=== PATIENT | female | born 1995 | race Hispanic/Latino ===

== ENCOUNTER 2022-02-13 08:29 | Emergency (ER) | payer MEDICAID ==
[~2022-02-13] VITALS: Ht 154.9 cm; Wt 72.6 kg
[~2022-02-13 08:29] MED LIST: PREN-154 PO
[2022-02-13 08:39] VITALS: BP 117/71
== END 2022-02-13 09:16 | disposition home or self-care (01) ==
LOC: EDH 08:29
DX: B09 Unspecified viral infection characterized by skin and mucous membrane lesions (principal); Z98.890 Other specified postprocedural states; Z79.899 Other long term (current) drug therapy

== ENCOUNTER 2022-03-24 15:47 | Emergency (ER) | payer MEDICAID ==
[~2022-03-24] VITALS: Ht 154.9 cm; Wt 73.9 kg
[2022-03-24 15:59] VITALS: BP 112/75
== END 2022-03-24 16:43 | disposition home or self-care (01) ==
LOC: EDH 15:47
DX: J02.8 Acute pharyngitis due to other specified organisms (principal); Z20.822 Contact with and (suspected) exposure to COVID-19; E66.9 Obesity, unspecified; Z68.30 Body mass index [BMI] 30.0-30.9, adult; Z98.890 Other specified postprocedural states
CPT/HCPCS: 99283; 87635; 87880; 87804 ×2; C9803

== ENCOUNTER 2022-03-31 09:56 | Emergency (ER) | payer MEDICAID ==
[~2022-03-31] VITALS: Ht 154.9 cm; Wt 74.8 kg
[2022-03-31] MEDS ORDERED: FLUT16H NASAL (14:04)
[2022-03-31] MEDS ORDERED: AMOX500C2 PO (14:04)
[2022-03-31] MEDS ORDERED: PRED20TA3 PO (14:04)
[2022-03-31] MEDS ORDERED: BENZ-39 PO (14:04)
[2022-03-31 14:10] VITALS: BP 118/70
== END 2022-03-31 14:12 | disposition home or self-care (01) ==
LOC: EDH 09:56
DX: J40 Bronchitis, not specified as acute or chronic (principal); J32.8 Other chronic sinusitis; Z20.822 Contact with and (suspected) exposure to COVID-19; E66.9 Obesity, unspecified; Z68.31 Body mass index [BMI] 31.0-31.9, adult
CPT/HCPCS: 99284; 71045; 87635; 87804 ×2; 81025; C9803

== ENCOUNTER 2022-07-05 08:24 | Emergency (ER) | payer MEDICAID ==
[~2022-07-05] VITALS: Ht 154.9 cm; Wt 73.9 kg
[~2022-07-05 08:24] MED LIST changes: +AMOX500C2 PO; +BENZ-39 PO; +FLUT16H NASAL; +PRED20TA3 PO
[2022-07-05 09:02] LABS: BASOPHILS % (AUTO) 0.3 % (0.0-5.0); EOSINOPHILS % (AUTO) 2.5 % (0.0-8.0); LYMPHOCYTES % (AUTO) 28.8 % (21.0-51.0); MEAN CORPUSCULAR HEMOGLOBIN 29.2 pg (27.0-33.0); MEAN CORPUSCULAR HGB CONC 33.1 g/dL (32.0-36.0); MEAN CORPUSCULAR VOLUME 88.2 fL (79-99); MONOCYTES % (AUTO) 4.2 % (3.0-13.0); PLATELET COUNT (AUTO) 281 K/uL (130-400); RED BLOOD CELL COUNT(AUTO) 4.08 MIL/uL (4.00-5.50); RED CELL DISTRIBUTION WIDTH 13.2 % (11.0-15.5)
[2022-07-05 09:22] LABS: CREATININE 0.8 mg/dL (0.5-1.5); POTASSIUM 3.3 mmol/L (3.5-5.1)
[2022-07-05 09:26] LABS: ALBUMIN 3.7 g/dL (3.5-5.0); TOTAL PROTEIN, SERUM 7.5 g/dL (6.0-8.3)
[2022-07-05 09:29] LABS: HCG,QUALITATIVE URINE NEGATIVE (NEGATIVE)
[2022-07-05 09:53] LABS: APPEARANCE,URINE TURBID (CLEAR); BILIRUBIN,URINE NEGATIVE (NEGATIVE); COLOR,URINE RED (YELLOW); GLUCOSE, URINE (UA) NEGATIVE (NEGATIVE); KETONES,URINE 5 mg/dL (NEGATIVE); LEUKOCYTE ESTERASE ,URINE SMALL Leu/uL (NEGATIVE); NITRATE,URINE NEGATIVE (NEGATIVE); OCCULT BLOOD,URINE LARGE (NEGATIVE); PROTEIN,URINE >=300 mg/dL (NEGATIVE); UROBILINOGEN,URINE 0.2 mg/dL (0.2-1.0)
[2022-07-05 09:59] LABS: RBC,URINE TNTC /HPF (0-1)
[2022-07-05 10:00] LABS: BACTERIA,URINE Rare /HPF (None Seen); SQUAMOUS EPITHELIAL CELL,UR Rare /HPF (0-2)
[2022-07-05 10:12] VITALS: BP 103/64
== END 2022-07-05 11:08 | disposition home or self-care (01) ==
LOC: EDH 08:24
DX: N93.8 Other specified abnormal uterine and vaginal bleeding (principal); E66.9 Obesity, unspecified; Z68.30 Body mass index [BMI] 30.0-30.9, adult; Z98.890 Other specified postprocedural states; Z79.899 Other long term (current) drug therapy
CPT/HCPCS: 36415; 80053; 81001; 81025; 85025

== ENCOUNTER 2022-07-06 20:52 | Emergency (ER) | payer MEDICAID | END 2022-07-06 22:34 | disposition left against medical advice (07) | LOC: EDH 20:52 | DX: N93.9 Abnormal uterine and vaginal bleeding, unspecified (principal); Z53.21 Procedure and treatment not carried out due to patient leaving prior to being seen by health care provider ==